=== PATIENT | female | born 1950 | race Caucasian/White ===

== ENCOUNTER → 2016-09-11 | Outpatient (CLI) | payer OTHER ==
[~2016-09-11] MED LIST: CHOL1TAB2 PO; GABA-113 PO; SYN75 PO
== END | disposition home or self-care (01) ==
LOC: C.LABSPEC 17:08
PROVIDERS: ATTEND Urology
DX: N20.0 Calculus of kidney (principal); N28.1 Cyst of kidney, acquired

== ENCOUNTER → 2017-05-14 | Outpatient (CLI) | payer OTHER | END | disposition home or self-care (01) | LOC: C.LABSPEC 17:05 | PROVIDERS: ATTEND Urology | DX: N20.0 Calculus of kidney (principal) ==

== ENCOUNTER → 2017-06-06 | Outpatient (CLI) | payer OTHER ==
[~2017-06-06] MED LIST changes: +AUGMENTIN PO; +BIOT1CAP8 PO; +FEXO1TAB49 PO; +KRIL1000 PO; +NITR1CAP33 PO; +OXYC-57 PO
--- NOTE | 2017-06-06 06:42 | DIAGNOSTIC IMAGING REPORT ---
KUB HISTORY: Follow-up study in a patient with kidney stone N20.0 Kidney stone COMPARISON: KUB 02/25/2017, CT 09/05/2016 FINDINGS: The bowel gas pattern is non-obstructive. There is no organomegaly. There are multiple right-sided renal calculi redemonstrated, largest of which is linear within the inferior pole, 1.9 cm which appears unchanged from comparison. No definite left-sided nephrolithiasis or ureteral calculi. Probable phleboliths of the pelvis. Prior cholecystectomy. No pneumoperitoneum or pneumatosis. No fracture. Degenerative changes of the hips and spine. IMPRESSION: 1. Unchanged appearance of right-sided nephrolithiasis without definite ureteral calculi identified. 2. Prior cholecystectomy. Electronically signed by: Alfredo Delgado M.D. 06/06/2017 6:41 AM Dictated Date/Time: 06/06/2017 6:39 AM
== END | disposition home or self-care (01) ==
LOC: C.RAD 06:10
PROVIDERS: ATTEND Urology
DX: N20.0 Calculus of kidney (principal); Z90.49 Acquired absence of other specified parts of digestive tract

== ENCOUNTER → 2017-06-06 | Day surgery (SDC) | payer OTHER ==
[2017-05-19 08:28] VITALS: Ht 156.2 cm; Wt 72.7 kg
--- NOTE | 2017-05-21 15:57 | DIAGNOSTIC IMAGING REPORT ---
CHEST 2 VIEWS ROUTINE CLINICAL HISTORY: N20.0 Kidney [id number] COMPARISON STUDY: No previous studies for comparison. FINDINGS: The bones soft tissues and hemidiaphragms are normal. The cardiomediastinal silhouette is normal. The lungs are clear. The pulmonary vasculature is normal. IMPRESSION: Negative chest. The above report was generated using voice recognition software. It may contain grammatical, syntax or spelling errors. Electronically signed by: David Brush M.D. 05/21/2017 3:55 PM Dictated Date/Time: 05/21/2017 3:43 PM
[2017-05-21 16:38] LABS: BASO % 0.6 %; BASO ABS # 0.04 K/uL (0-0.2); EOS % 3.1 %; EOS ABS # 0.22 K/uL (0-0.5); HEMATOCRIT 41.9 % (37-47); HEMOGLOBIN 13.9 g/dL (12.0-16.0); IG# 0.01 K/uL (0.00-0.02); LYMPH ABS # 2.16 K/uL (1.2-3.4); MEAN CELL VOLUME 93.1 fL (80-100); MEAN CORPUSCULAR HEMOGLOBIN 30.9 pg (25-34); MEAN CORPUSCULAR HGB CONC 33.2 g/dl (32-36); MEAN PLATELET VOLUME 11.2 fL (7.4-10.4); MONO % 6.8 %; MONO ABS # 0.49 K/uL (0.11-0.59); NEUT % 59.4 %; NEUT ABS # 4.29 K/uL (1.4-6.5); PLATELET COUNT 234 K/uL (130-400); RED CELL DISTRIBUTION WIDTH CV 13.4 % (11.5-14.5); RED CELL DISTRIBUTION WIDTH SD 45.4 fL (36.4-46.3); WHITE BLOOD COUNT 7.21 K/uL (4.8-10.8)
[2017-05-21 16:57] LABS: CALCIUM 9.1 mg/dl (8.5-10.1); CREATININE 0.73 mg/dl (0.60-1.20); POTASSIUM 3.7 mmol/L (3.5-5.1)
[~2017-06-06] VITALS: Ht 156.2 cm; Wt 72.7 kg
[~2017-06-06] MED LIST changes: +ATROPINE SULFATE 0.1 MG/ML 5ML SYR IV PRN; +CIPROFLOXACIN 400MG / D5W IV SCH; +DEXAMETHASONE SOD INJ 4 MG/ML VIAL ONE; +EpHEDrine SULFATE INJ 50 MG/ML AMP IV PRN; +FENTANYL CITRATE INJ 50 MCG/1 ML 2 ML VIAL ONE; +LACTATED RINGER'S 1000ML 1,000 ML IV SCH; +LIDOCAINE HCL 2% 2 ML VIAL (20MG/ML) ONE; +MIDAZOLAM HCL 1 MG/ML 2ML VIAL ONE; +NURSING VERBAL MED ORDER ONE; +ONDANSETRON INJ 2 MG/ML 2 ML VIAL IV PRN; +ONDANSETRON INJ 2 MG/ML 2 ML VIAL ONE; +OXYCODONE/ACETAMINOPHEN 5-325 TAB ONE; +OXYCODONE/ACETAMINOPHEN 5-325 TAB PO PRN; +PROPOFOL IV EMULSION 10 MG/ML 20 ML VIAL IV ONE
--- NOTE | 2017-06-06 09:16 | History & Physical Bridge - SC ---
H&P Re-Evaluation Bridge Note: I have examined the patient, reviewed the History & Physical and in the interval since the performance of the History & Physical I have noted the following changes of clinical significance: No changes noted
--- NOTE | 2017-06-06 10:12 | Discharge Instructions-SurgCtr ---
Discharge Instructions Date of Service Jun 06, 2017. Visit Reason for Visit: Kidney Stone N20.0 Discharge Discharge Diagnosis / Problem: post op eswl Discharge Goals Goal(s): Increase independence, Improve disease control Medications Stopped Medications Name(s): Krill oil stopped 05-29-17 Activity Recommendations Activity Limitations: resume your previous activity Anesthesia . Post Anesthesia Instructions: If you have had General Anesthesia or IV Sedation: * Do not drive today. * Resume driving when surgeon permits. * Do not make important decisions or sign legal documents today. * Call surgeon for: 1. Temperature elevations greater than 101 degrees F. 2. Uncontrollable pain. 3. Excessive bleeding. 4. Persistent nausea and vomiting. 5. Medication intolerance (nausea, vomiting or rash). * For nausea and vomiting use only clear liquids such as: tea, soda, bouillon until nausea subsides, then gradually increase diet as tolerated. * If you have any concerns or questions, call your surgeon's office. If physician is unavailable and it is an emergency, call 911 or go to the nearest emergency room. . Diet Recommendations Home Diet: resume previous diet Procedures Procedures Performed: Left Extracorporeal Shock Wave Lithotripsy -Renal Pending Studies Studies pending at discharge: no Medical Emergencies . Who to Call and When: Medical Emergencies: If at any time you feel your situation is an emergency, please call 911 immediately. . Non-Emergent Contact Non-Emergency issues call your: Urologist . . "Provider Documentation" section prepared by Fredrick Coronel. .
--- NOTE | 2017-06-06 10:13 | [facility] Post Operative Brief Note ---
Immediate Operative Summary Operative Date Jun 06, 2017. Pre-Operative Diagnosis Right Renal Stone Post-Operative Diagnosis Same as pre-op Procedure(s) Performed Left Extracorporeal Shock Wave Lithotripsy -Renal Surgeon Dr. Ashley Coronel Recording Studio Set Up Worker Surgeon(s) None Estimated Blood Loss 0 mL Findings Consistent with Post-Op Diagnosis Specimens none Anesthesia Type General
[2017-06-06] MEDS: FENTANYL CITRATE INJ 50 MCG/1 ML 2 ML VIAL IV PRN ×4 (10:32→11:29)
--- NOTE | 2017-06-06 10:49 | OPERATIVE REPORT ---
DATE OF OPERATION: 06/06/2017 PREOPERATIVE DIAGNOSIS: Right renal stone. POSTOPERATIVE DIAGNOSIS: Same. PROCEDURE: Right ESWL. ANESTHESIA: General. INDICATIONS: The patient is a 66-year-old female who has been having recurrent infections who has a moderately large right lower pole stone that appeared to be 2 segments who is here for ESWL. DESCRIPTION OF THE PROCEDURE: The patient was taken to the operating room after Venodyne stockings were placed and she was given antibiotics and she was placed in the supine position and given general anesthesia. The stone was visualized. There were 2 components to the stone, one larger one that was more closer to the renal pelvis and in the lower pole smaller portion appeared to be either connected or adjacent to the larger stone in the lower pole of the right renal pelvis. Attention was focused on the larger component close to the renal pelvis during the entire procedure and 2500 shocks were delivered to this area. We moved the machine around the target portions of this stone and there did appear to be some fragmentation of the stone during the procedure. At the end of the procedure, the patient was transferred to the recovery room in stable condition. I attest to the content of the Intraoperative Record and any orders documented therein. Any exception s are noted below.
[2017-06-06 11:51] VITALS: TEMP 36.2
--- NOTE | 2017-06-06 12:18 | Anesthesia Progress Nt - [facility] ---
Anesthesia Post Op Note Date & Time Jun 06, 2017 at 12:18 Vital Signs Pain Intensity: 4.0 Vital Signs Past 12 Hours Date Time Temp Pulse Resp B/P (MAP) Pulse Ox O2 Delivery O2 Flow Rate FiO2 06/06/17 11:51 36.2 55 18 114/65 (81) 96 Room Air 06/06/17 11:36 36.5 60 20 140/56 95 Room Air 06/06/17 11:36 140/56 06/06/17 11:34 60 15 06/06/17 11:34 59 15 100 06/06/17 11:31 135/68 06/06/17 11:29 61 18 100 06/06/17 11:29 61 18 06/06/17 11:26 126/59 06/06/17 11:24 63 23 06/06/17 11:24 62 23 100 06/06/17 11:20 144/67 06/06/17 11:19 64 19 06/06/17 11:19 64 19 100 06/06/17 11:16 113/68 06/06/17 11:14 60 12 100 06/06/17 11:14 60 12 06/06/17 11:11 136/71 06/06/17 11:09 65 17 100 06/06/17 11:09 64 17 06/06/17 11:05 124/61 06/06/17 11:04 62 20 06/06/17 11:04 62 20 92 06/06/17 11:00 123/61 06/06/17 10:59 64 20 06/06/17 10:59 63 20 97 06/06/17 10:56 116/51 06/06/17 10:54 61 15 98 06/06/17 10:54 61 15 06/06/17 10:50 119/56 06/06/17 10:49 53 16 98 06/06/17 10:49 53 16 06/06/17 10:45 115/59 06/06/17 10:44 56 16 06/06/17 10:44 57 16 98 06/06/17 10:41 103/67 06/06/17 10:39 61 28 06/06/17 10:39 61 28 98 06/06/17 10:35 117/67 06/06/17 10:34 64 20 99 2/9/18 10:34 64 20 06/06/17 10:30 123/72 06/06/17 10:29 58 14 99 06/06/17 10:29 58 14 06/06/17 10:26 123/66 06/06/17 10:24 60 11 06/06/17 10:24 60 11 99 06/06/17 10:20 122/73 06/06/17 10:19 36.3 71 16 127/65 99 Mask 6 06/06/17 06:51 36.6 64 16 120/78 (92) 95 Room Air Notes Mental Status: alert / awake / arousable, participated in evaluation Pt Amnestic to Procedure: Yes Nausea / Vomiting: adequately controlled Pain: adequately controlled Airway Patency, RR, SpO2: stable & adequate BP & HR: stable & adequate Hydration State: stable & adequate Anesthetic Complications: no major complications apparent
[2017-06-06 12:25] VITALS: BP 129/56; PULSE 62; O2SAT 96
== END | disposition home or self-care (01) ==
LOC: X.SURG 06:25
PROVIDERS: ATTEND Urology
DX: N20.0 Calculus of kidney (principal); J45.909 Unspecified asthma, uncomplicated; F32.9 Major depressive disorder, single episode, unspecified; E78.5 Hyperlipidemia, unspecified; E03.9 Hypothyroidism, unspecified; E66.9 Obesity, unspecified; M19.90 Unspecified osteoarthritis, unspecified site; Z88.2 Allergy status to sulfonamides; Z88.1 Allergy status to other antibiotic agents; Z88.8 Allergy status to other drugs, medicaments and biological substances; Z79.899 Other long term (current) drug therapy; Z90.49 Acquired absence of other specified parts of digestive tract; Z98.890 Other specified postprocedural states; Z82.49 Family history of ischemic heart disease and other diseases of the circulatory system; Z82.5 Family history of asthma and other chronic lower respiratory diseases; Z82.3 Family history of stroke

== ENCOUNTER → 2017-06-18 | Outpatient (CLI) | payer OTHER ==
[~2017-06-18] MED LIST changes: -ATROPINE SULFATE 0.1 MG/ML 5ML SYR IV PRN; +CHOL1TAB76 PO; -CIPROFLOXACIN 400MG / D5W IV SCH; -DEXAMETHASONE SOD INJ 4 MG/ML VIAL ONE; -EpHEDrine SULFATE INJ 50 MG/ML AMP IV PRN; -FENTANYL CITRATE INJ 50 MCG/1 ML 2 ML VIAL ONE; -LACTATED RINGER'S 1000ML 1,000 ML IV SCH; -LIDOCAINE HCL 2% 2 ML VIAL (20MG/ML) ONE; -MIDAZOLAM HCL 1 MG/ML 2ML VIAL ONE; +NITR1CAP32 PO; -NURSING VERBAL MED ORDER ONE; -ONDANSETRON INJ 2 MG/ML 2 ML VIAL IV PRN; -ONDANSETRON INJ 2 MG/ML 2 ML VIAL ONE; -OXYCODONE/ACETAMINOPHEN 5-325 TAB ONE; -OXYCODONE/ACETAMINOPHEN 5-325 TAB PO PRN; +PHEN95TA14 PO; -PROPOFOL IV EMULSION 10 MG/ML 20 ML VIAL IV ONE
== END | disposition home or self-care (01) ==
LOC: C.LABSPEC 17:15
PROVIDERS: ATTEND Urology
DX: N20.0 Calculus of kidney (principal)

== ENCOUNTER → 2017-06-18 | Outpatient (CLI) | payer OTHER ==
--- NOTE | 2017-06-18 13:39 | DIAGNOSTIC IMAGING REPORT ---
KUB CLINICAL HISTORY: N20.0 Kidney stone COMPARISON STUDY: 06/06/2017 FINDINGS: There is no pathologic bowel dilatation. Fragmented lower pole right renal calculi are visualized. The largest cluster measures 24 mm in length. No left renal calculi are visualized. Pelvic basin calcifications remain stable favoring phleboliths. There are surgical clips within the right upper quadrant suggesting a prior cholecystectomy IMPRESSION: Fragmented lower pole right renal calculi similar to the preceding study Electronically signed by: Andry Perez M.D. 06/18/2017 1:37 PM Dictated Date/Time: 06/18/2017 1:36 PM
[2017-06-18 16:40] LABS: BASO % 0.2 %; BASO ABS # 0.02 K/uL (0-0.2); EOS % 2.1 %; EOS ABS # 0.17 K/uL (0-0.5); HEMATOCRIT 35.9 % (37-47); HEMOGLOBIN 11.9 g/dL (12.0-16.0); IG# 0.02 K/uL (0.00-0.02); LYMPH % 21.8 %; LYMPH ABS # 1.76 K/uL (1.2-3.4); MEAN CELL VOLUME 91.6 fL (80-100); MEAN CORPUSCULAR HEMOGLOBIN 30.4 pg (25-34); MEAN CORPUSCULAR HGB CONC 33.1 g/dl (32-36); MEAN PLATELET VOLUME 9.8 fL (7.4-10.4); MONO % 6.9 %; MONO ABS # 0.56 K/uL (0.11-0.59); NEUT % 68.8 %; NEUT ABS # 5.53 K/uL (1.4-6.5); PLATELET COUNT 308 K/uL (130-400); RED CELL DISTRIBUTION WIDTH CV 13.8 % (11.5-14.5); RED CELL DISTRIBUTION WIDTH SD 45.8 fL (36.4-46.3); WHITE BLOOD COUNT 8.06 K/uL (4.8-10.8)
[2017-06-18 17:06] LABS: BLOOD UREA NITROGEN 11 mg/dl (7-18); CALCIUM 9.1 mg/dl (8.5-10.1); CARBON DIOXIDE 30 mmol/L (21-32); GLUCOSE 141 mg/dl (70-99); POTASSIUM 3.7 mmol/L (3.5-5.1); SODIUM 139 mmol/L (136-145)
== END | disposition home or self-care (01) ==
LOC: C.RAD 12:30
PROVIDERS: ATTEND Urology
DX: N20.0 Calculus of kidney (principal)

== ENCOUNTER 2017-07-01 06:58 | Day surgery (SDC) | payer OTHER ==
[2017-06-25 08:37] VITALS: Ht 156.2 cm; Wt 72.7 kg
[~2017-07-01] VITALS: Ht 156.2 cm; Wt 72.7 kg
[~2017-07-01 06:58] MED LIST changes: -AUGMENTIN PO; -CHOL1TAB2 PO; +CIPROFLOXACIN / D5W 400 MG IV SCH; +LACTATED RINGER'S 1000ML 1,000 ML IV SCH; -NITR1CAP32 PO; -PHEN95TA14 PO
[2017-07-01] MEDS ORDERED: MIDAZOLAM HCL 1 MG/ML 2ML VIAL ONE (06:59)
[2017-07-01] MEDS ORDERED: LIDOCAINE HCL 2% 2 ML VIAL (20MG/ML) ONE (07:00)
[2017-07-01] MEDS ORDERED: DEXAMETHASONE SOD INJ 4 MG/ML VIAL ONE ×2 (07:00→08:47)
[2017-07-01] MEDS ORDERED: ONDANSETRON INJ 2 MG/ML 2 ML VIAL ONE ×2 (07:00→08:47)
[2017-07-01] MEDS ORDERED: PROPOFOL IV EMULSION 10 MG/ML 20 ML VIAL IV ONE (07:00)
[2017-07-01] MEDS ORDERED: FENTANYL CITRATE INJ 50 MCG/1 ML 2 ML VIAL ONE (07:00)
[2017-07-01] MEDS ORDERED: NITR1CAP32 PO (07:21)
[2017-07-01 07:24] VITALS: BP 126/54; PULSE 72; TEMP 36.7; O2SAT 95
[2017-07-01] MEDS ORDERED: ATROPINE SULFATE 0.1 MG/ML 5ML SYR IV PRN (08:45)
[2017-07-01] MEDS ORDERED: ONDANSETRON INJ 2 MG/ML 2 ML VIAL IV PRN (08:45)
[2017-07-01] MEDS ORDERED: FENTANYL CITRATE INJ 50 MCG/1 ML 2 ML VIAL IV PRN (08:45)
[2017-07-01] MEDS ORDERED: EpHEDrine SULFATE INJ 50 MG/ML AMP IV PRN (08:45)
[2017-07-01] MEDS ORDERED: PHENYLEPHRINE 100MCG/ML 5ML SYR ONE (08:47)
--- NOTE | 2017-07-01 09:34 | [facility] Operative Report ---
Operative Report Operative Date Jul 01, 2017. Pre-Operative Diagnosis nephrolithiasis Post-Operative Diagnosis nephrolithiasis Procedure(s) Performed cystoscopy; right ureteroscopy; laser lithotripsy; stent placement - [id number] Surgeon López Gonzalez Estimated Blood Loss 0cc Findings fragmented stones in the lower pole Drains [id number] Anesthesia Type General Complication(s) none Disposition yes Recovery Room / PACU Indications nephrolithiasis Description of Procedure Patient was identified in the preoperative holding area, appropriate informed consents reviewed and completed and she was transported to the operating suite. Upon arrival she received appropriate preoperative antibiotics in the form of ciprofloxacin. Adequate general anesthesia was achieved she was placed in dorsal lithotomy position where she was sterilely prepped and draped in standard fashion. I began the case by passing a 22 Samoan cystoscope with 30 lens. Full inspection of the bladder was carried out revealing no abnormalities. Ureteral orifices were in orthotopic position. I then cannulated the right ureteral orifice with a sensor wire and a 10 Samoan double- lumen catheter. A second wire was advanced to the kidney. I attempted to pass a ureteral access sheath, however her ureter would not accommodate this so I aborted that aspect of the procedure. Instead I have directly passed a flexible ureteroscope into the kidney. Full renoscopy was carried out. There were no stones in the upper midpole, but in the extreme lower pole there is a pile of small stones. These are also visible on KUB. I then passed a 200 m laser fiber and fragmented the stones maximally irrigated and out of the lower pole. After confirming that all stones were adequately treated, I performed a repeat renoscopy to ensure no missed large fragments, and I performed a very careful exit ureteroscopy. Of note, there were no stones in the ureter, but she does appear to have some blebs of tissue on numerous locations throughout the ureter. These appear to have some yellow fat underneath them they do not appear to be consistent with a malignancy, but more likely a benign chronic process. They do not have any associated inflammation or irritation with them. I concluded the case by placing a 6 Samoan by 24 cm double-J ureteral stent and draining the bladder. She was extubated and taken to the PACU in stable condition. I attest to the content of the Intraoperative Record and any orders documented therein. Any exceptions are noted below.
[2017-07-01] MEDS ORDERED: PHEN95TA14 PO (09:35)
[2017-07-01] MEDS ORDERED: SODIUM CHLORIDE 0.9% 1000ML 1,000 ML IV SCH (09:36)
[2017-07-01] MEDS ORDERED: KETOROLAC TROMETHAMINE 15 MG/ML VIAL IV. STA (09:36)
--- NOTE | 2017-07-01 09:36 | Discharge Instructions ---
Discharge Instructions Date of Service Jul 01, 2017. Admission Reason for Admission: Stones Discharge Discharge Diagnosis / Problem: stones Discharge Goals Goal(s): Decrease discomfort, Improve function, Increase independence, Improve disease control Activity Recommendations Activity Limitations: resume your previous activity Lifting Limitations: none Exercise/Sports Limitations: none May Resume Sexual Activity: when tolerated Shower/Bathe: no limitations Driving or Machine Use: resume 1 day after discharge . Instructions / Follow-Up Instructions / Follow-Up Please keep your previously scheduled follow up appointment for stent removal. Current Hospital Diet Patient's current hospital diet: Discharge Diet Recommended Diet: Regular Diet Procedures Procedures Performed: cystoscopy; right ureteroscopy; laser lithotripsy; stent placement - [id number] Pending Studies Studies pending at discharge: no Medical Emergencies . Who to Call and When: Medical Emergencies: If at any time you feel your situation is an emergency, please call 911 immediately. . Non-Emergent Contact Non-Emergency issues call your: Urologist Call Non-Emergent contact if: you have a fever, temperature is above 101.5, your pain is not controlled, your pain is worsening . . "Provider Documentation" section prepared by Saúl Ling. .
[2017-07-01] MEDS ORDERED: ACETAMINOPHEN 325 MG TAB PO PRN (09:45)
[2017-07-01] MEDS ORDERED: OXYCODONE/ACETAMINOPHEN 5-325 TAB PO PRN ×2 (09:45)
--- NOTE | 2017-07-01 10:01 | DIAGNOSTIC IMAGING REPORT ---
THE CLINICAL HISTORY: RIGHT SIDE LASER/LITHO COMPARISON STUDY: 06/18/2017 FINDINGS: 34 seconds of fluoroscopic time was utilized. 2 intraoperative fluoroscopic spot images are provided for interpretation. These reveal a double-pigtail right-sided nephroureteral stent. Calcifications project over the lower pole the right kidney likely representing calculi IMPRESSION: Intraoperative fluoroscopic spot images demonstrating a double-pigtail right-sided nephroureteral stent Electronically signed by: Andry Perez M.D. 07/01/2017 10:00 AM Dictated Date/Time: 07/01/2017 9:59 AM
[2017-07-01 10:15] VITALS: BP 136/69; PULSE 74; TEMP 36.6; O2SAT 91
--- NOTE | 2017-07-01 10:29 | Anesthesiology Progress Note ---
Anesthesia Post Op Note Date & Time Jul 01, 2017 at 10:29 Vital Signs Pain Intensity: 0 Vital Signs Past 12 Hours Date Time Temp Pulse Resp B/P (MAP) Pulse Ox O2 Delivery O2 Flow Rate FiO2 07/01/17 10:15 36.5 73 14 131/79 96 Nasal Cannula 2 07/01/17 10:05 79 15 130/76 94 Nasal Cannula 2 07/01/17 09:55 85 11 124/79 95 Oxymask 10 07/01/17 09:45 79 14 112/65 95 Oxymask 10 07/01/17 09:35 36.4 82 18 100/61 94 Oxymask 10 07/01/17 07:24 36.7 72 18 126/54 (78) 95 Room Air Notes Mental Status: alert / awake / arousable, participated in evaluation Pt Amnestic to Procedure: Yes Nausea / Vomiting: adequately controlled Pain: adequately controlled Airway Patency, RR, SpO2: stable & adequate BP & HR: stable & adequate Hydration State: stable & adequate Anesthetic Complications: no major complications apparent
[2017-07-01 10:45] VITALS: BP 138/63; PULSE 71; O2SAT 93
[2017-07-01] MEDS ORDERED: OXYC-57 PO (10:50)
[2017-07-01 11:35] VITALS: BP 132/62; PULSE 76; TEMP 36.6; O2SAT 94
[2017-07-01] MEDS ORDERED: OXYCODONE/ACETAMINOPHEN 5-325 TAB PO STA (12:56)
== END 2017-07-01 12:10 | disposition home or self-care (01) ==
LOC: C.ACU 06:58
PROVIDERS: ATTEND Urology
DX: N20.0 Calculus of kidney (principal); F32.9 Major depressive disorder, single episode, unspecified; J45.909 Unspecified asthma, uncomplicated; E78.5 Hyperlipidemia, unspecified; E03.9 Hypothyroidism, unspecified; M15.0 Primary generalized (osteo)arthritis; K21.9 Gastro-esophageal reflux disease without esophagitis; Z82.49 Family history of ischemic heart disease and other diseases of the circulatory system; Z82.5 Family history of asthma and other chronic lower respiratory diseases; Z82.3 Family history of stroke; Z79.899 Other long term (current) drug therapy; Z88.1 Allergy status to other antibiotic agents; Z88.2 Allergy status to sulfonamides; Z88.8 Allergy status to other drugs, medicaments and biological substances

== ENCOUNTER → 2017-07-09 | Outpatient (CLI) | payer OTHER ==
[~2017-07-09] MED LIST changes: -CIPROFLOXACIN / D5W 400 MG IV SCH; -LACTATED RINGER'S 1000ML 1,000 ML IV SCH; +NITR1CAP32 PO; -NITR1CAP33 PO; +PHEN95TA14 PO
--- NOTE | 2017-07-09 12:30 | DIAGNOSTIC IMAGING REPORT ---
KUB HISTORY: Follow up study in a patient with nephrolithiasis N20.0 Kidney stoneTO BE DONE EITHER THE NIGHT BEFORE OR MORNING COMPARISON: KUB 07/01/2017 and 06/18/2017. FINDINGS: The bowel gas pattern is non-obstructive. There is no organomegaly. Right-sided ureteral stent appears to be in satisfactory positioning. Right-sided nephrolithiasis redemonstrated with largest calculus measuring up to 8 mm within the inferior pole right kidney, decreased in size from comparison study dated 06/18/2017. There is either a single 9 mm or several punctate conglomerate calculi noted layering along the distal right ureteral stent at the level of the mid right sacrum. No definite left nephrolithiasis identified. Linear calcification of the left hemipelvis is unchanged suggesting phleboliths. No pneumoperitoneum or pneumatosis. No fracture. Degenerative changes are noted within the shoulders and hips. Cholecystectomy clips noted. IMPRESSION: 1. Satisfactory positioning of right ureteral stent. 2. Right-sided nephrolithiasis with 9 mm single calculus or multiple punctate conglomerate calculi at the level of the distal right ureter. Electronically signed by: Alfredo Delgado M.D. 07/09/2017 12:29 PM Dictated Date/Time: 07/09/2017 12:25 PM
== END | disposition home or self-care (01) ==
LOC: C.RAD 12:06
PROVIDERS: ATTEND Urology
DX: N20.0 Calculus of kidney (principal)